=== PATIENT | male | born 1950 | race Caucasian/White ===

== ENCOUNTER 2022-10-19 05:56 | Day surgery (SDC) | payer MEDICARE, BC ==
[2022-10-17 14:16] VITALS: BMI 24.3
[~2022-10-19 05:56] MED LIST: EPINEPHrine 0.3 MG in Ophthalmic Irrigation Solution 500 ML IRR SCH
[2022-10-19] MEDS ORDERED: Phenylephrine 2.5% Ophth Soln 5 ML BOT ONE (06:13)
[2022-10-19] MEDS ORDERED: Cyclopentolate 1% Opth Drop 2 ML BOT ONE (06:13)
[2022-10-19] MEDS ORDERED: Midazolam HCl 2 mg/2 ml Vial ONE (06:35)
[2022-10-19] MEDS ORDERED: fentaNYL PF 100 MCG/2 ML SYRINGE ONE (06:35)
[2022-10-19] MEDS ORDERED: PROPOFOL 20 ML ONE (06:35)
[2022-10-19] MEDS ORDERED: Bupivacaine 0.75% 10 ML VIAL ONE (07:13)
[2022-10-19] MEDS ORDERED: Lidocaine 4% PF 5 ML AMP ONE (07:13)
[2022-10-19] MEDS ORDERED: Maxitrol 0.1% Opth Oint 3.5 GM TUBE ONE (07:13)
[2022-10-19] MEDS ORDERED: Triamcinolone 40 MG/ML VIAL ONE (07:13)
== END 2022-10-19 08:20 | disposition home or self-care (01) ==
LOC: SDC 05:56
PROVIDERS: ATTEND Ophthalmology Retina Specialist
PROC: 08T43ZZ Resection of Right Vitreous, Percutaneous Approach (ICD-10-PCS; principal; 2022-10-19)
PROC: 08NE3ZZ Release Right Retina, Percutaneous Approach (ICD-10-PCS; 2022-10-19)
DX: H43.311 Vitreous membranes and strands, right eye (principal); E78.5 Hyperlipidemia, unspecified; F17.200 Nicotine dependence, unspecified, uncomplicated; Z79.899 Other long term (current) drug therapy; Z88.0 Allergy status to penicillin
CPT/HCPCS: J0171; J2250; J2704; J3301; J3490

== ENCOUNTER 2023-04-26 06:21 | Day surgery (SDC) | payer MEDICARE, BC ==
[2023-04-25 12:33] VITALS: BMI 25.0
[2023-04-26] MEDS ORDERED: fentaNYL 50 mcg/mL 1 mL Vial ONE (06:30)
[2023-04-26] MEDS ORDERED: Midazolam HCl 2 mg/2 ml Vial ONE (06:30)
[2023-04-26] MEDS ORDERED: PHENYLephrine 2.5% Ophth Soln 15 ml Bottle ONE ×2 (06:54)
[2023-04-26] MEDS ORDERED: Cyclopentolate 0.5% Opth Drops 15 ML BOT ONE (06:55)
[2023-04-26] MEDS ORDERED: CEFAZOLIN 1 GM VIAL ONE (07:57)
[2023-04-26] MEDS ORDERED: Lidocaine 1% PF 5 ML VIAL ONE (07:57)
[2023-04-26] MEDS ORDERED: Lidocaine 4% PF 5 ML AMP ONE (07:57)
[2023-04-26] MEDS ORDERED: Maxitrol 0.1% Opth Oint 3.5 GM TUBE ONE (07:57)
[2023-04-26] MEDS ORDERED: Bupivacaine 0.75% 10 ML VIAL ONE (07:57)
[2023-04-26] MEDS ORDERED: PROPOFOL 200 MG/20 ML VIAL ONE (07:57)
[2023-04-26] MEDS ORDERED: Triamcinolone 40 MG/ML VIAL ONE (07:57)
== END 2023-04-26 09:36 | disposition home or self-care (01) ==
LOC: SDC 06:21
PROVIDERS: ATTEND Ophthalmology Retina Specialist
PROC: 08T53ZZ Resection of Left Vitreous, Percutaneous Approach (ICD-10-PCS; principal; 2023-04-26)
PROC: 08NF3ZZ Release Left Retina, Percutaneous Approach (ICD-10-PCS; 2023-04-26)
DX: H43.392 Other vitreous opacities, left eye (principal)
CPT/HCPCS: 67041; J3010; J0171; J0690; J2250; J2704; J3301; J3490